=== PATIENT | male | born 1975 ===

== ENCOUNTER 2024-02-17 12:35 | Outpatient (AMB) | payer OTHER, SELFPAY ==
--- NOTE | 2024-02-17 12:51 | A.OFFVIS_ITS ---
Intake Visit Reasons: BPH/ dysuria Intake Note: New Patient presents for initial visit for BPH and Dysuria Urology Medications: Finasteride, Tamsulosin Blood Thinner: none PVR: 31ml's Heavy Truck Mechanic Required: No Accompanied by: Unknown Allergies No Known Allergies Allergy (Verified 02/17/24 13:19) Medication List - Last Reconciled 02/17/24 by DES Stevenson finasteride 5 mg PO DAILY gabapentin mg PO lamotrigine 150 mg PO BID mirtazapine 30 mg PO BEDTIME olanzapine 10 mg PO DAILY polyethylene glycol 3350 grams PO prazosin mg PO sertraline 100 mg PO BID tamsulosin mg PO DAILY HPI Comments Details: Alex is a very pleasant 48-year-old male patient of Dr. Nascimento who was accompanied by his significant other at today's office visit. He has a past medical history of obesity, osteoarthritis of bilateral knees, sleep apnea, chronic constipation, hemorrhoids, and PTSD. He presents to the office today as a new patient for ongoing lower urinary tract symptoms he has been experiencing. In discussion with the patient today he reports since April of last year to the beginning of this year he has been having ongoing issues with dysuria, urinary urgency, urinary frequency, and episodes of urinary incontinence at which time he followed up with his PCP and was started on Flomax and finasteride and recommendation was made for urology referral for further assessment evaluation. He reports noting somewhat improvement in incontinent episodes as w ell as weak urinary stream he had been experiencing. However he does continue with episodes of dysuria and bladder pressure. ADRIÁN performed boggy prostate noted otherwise no nodules or masses palpated. We discussed potential for prostatitis given ADRIÁN and lower urinary tract symptoms. He otherwise denies hematuria, foul smelling urine, flank pain, fever, and or chills. Discussed obtaining retroperitoneal ultrasound for further assessment evaluation and PSA 6-8 weeks status post completion of antibiotic therapy for presumed prostatitis. Unable to obtain urine for urinalysis however PVR 31 mL. He otherwise offers no other issues or concerns at this time. [facility] Medical History Morbidly obese Osteoarthritis of knees, bilateral Sleep apnea Chronic constipation PTSD (post-traumatic stress disorder) Review of Systems Const All systems reviewed & are unremarkable except as noted in HPI and below Physical Exam Const General: cooperative, healthy appearing, comfortable, no acute distress, well developed, alert and awake Nutritional Appearance: overweight Orientation/consciousness: patient oriented x3 Limitations: no limitations HEENT Head: Yes normal to inspection, Yes normocephalic and Yes atraumatic Ears: hearing grossly normal bilaterally Eyes General: appearance normal, both eyes and all related structures Neck Neck: Yes normal visual inspection and Yes trachea midline Chest Chest palpation & inspection: normal inspection of the chest Resp Effort & Inspection: normal respiratory effort and able to speak in complete sentences Cardio Rate: regular rate GI Inspection: Yes normal to inspection General: Yes no CVA tenderness Back/Spine/Pelvis Back: no CVA tenderness Skin General skin exam: no rashes or lesions noted Neuro General: patient oriented x3 Extrem General: Yes normal to inspection Psych Appearance: grossly normal and well kempt Mental Status: mental status grossly normal Speech and movement: Normal speech and movement present and Clear speech present Affect: normal affect Attitude: cooperative Thought process: Normal thought process present Thought content: Normal thought content present Insight: Fair insight present (Psych) Judgement: Fair judgement present (Psych) Office Procedures Post Void Residual Post Residual Void Post Void Residual (PVR): [id number] Void Residual by ultrasound Assessment & Plan Assessment & Plan (1) Lower urinary tract symptoms: Code(s): R39.9 - Unspecified symptoms and signs involving the genitourinary system Category: Medical (2) Prostatitis: Code(s): N41.9 - Inflammatory disease of prostate, unspecified Category: Medical Plan Unable to in urine for urinalysis however PVR 31 mL. ADRIÁN performed boggy prostate noted; we discussed potential prostatitis given lower urinary tract symptoms and ADRIÁN. Start Bactrim as discussed and prescribed. Discussed obtaining PSA 6-8 weeks status post completion of antibiotic therapy. Will obtain retroperitoneal ultrasound for further assessment evaluation. Discussed bladder triggers/irritants. Discussed potential causes for lower urinary tract symptoms patient has been experiencing. Continue Flomax and finasteride Follow-up in 2-3 months with imaging and labs to be completed prior; or sooner with any issues, concerns, and or questions. Orders: Orders AMB Post Void Residual by ultrasound Today Z13.9 - Encounter for screening, unspecified US retroperitoneal comp Today N41.9 - Inflammatory disease of prostate, unspecified, R39.9 - Unspecified symptoms and signs involving the genitourinary system Prostate Specific Antigen 6 Weeks N41.9 - Inflammatory disease of prostate, unspecified, R39.9 - Unspecified symptoms and signs involving the genitourinary system AMB Urinalysis Automated Today Z13.9 - Encounter for screening, unspecified Medications: New sulfamethoxazole-trimethoprim 800-160 mg (Bactrim DS) 1 tab PO BID 28 tabs 0RF 14 days N39.0 - Urinary tract infection, site not specified Patient Instructions: The patient had an opportunity to ask questions regarding the treatment plan. All questions were answered. Physical exam, labs, and imaging were discussed and reviewed in detail. As well as risks, benefits, and discussion of treatment choices. No major barriers to understanding were identified. The patient expressed understanding and agreement with the above treatment plan. The patient was made aware they should contact our office by phone for worsening of their current condition, the appearance of new symptoms, or with any questions or concerns. Compliance is encouraged with any medications and follow up testing that is ordered. It is a privilege to be allowed the opportunity to participate in? your urological care.? Again, if you have any questions or concerns If you have any questions or concerns please do not hesitate to contact me. The office is [phone]. This note is constructed using voice recognition software. While every effort has been made to ensure accuracy payroll tax analyst errors may have been included. Yours sincerely, JOSE ALFREDO Stevenson Coding Level of Care Code New Pt Level 4 (30630) Diagnoses Lower urinary tract symptoms R39.9 Prostatitis N41.9 CPT Codes Post Residual Void - PVR CPT Code: 44467-[id number] Void Residual by ultrasound ([id number])
== END 2024-02-17 13:40 | disposition home or self-care (01) ==
PROVIDERS: PCP Internal Medicine; Visit Provider Nurse Practitioner Family
DX: R39.9 Unspecified symptoms and signs involving the genitourinary system (principal); N41.9 Inflammatory disease of prostate, unspecified
CPT/HCPCS: 99204

== ENCOUNTER → 2024-02-17 12:35 | Outpatient (BNVA) | payer OTHER, SELFPAY | PROVIDERS: PCP Internal Medicine; Visit Provider Nurse Practitioner Family | DX: N41.9 Inflammatory disease of prostate, unspecified (principal); R39.9 Unspecified symptoms and signs involving the genitourinary system | CPT/HCPCS: 51798; 99202 ==

== ENCOUNTER 2024-02-27 09:41 | Outpatient (REF) | payer OTHER, SELFPAY ==
--- NOTE | ~2024-02-27 | US_ITS ---
EXAMINATION: US RETROPERITONEAL COMPLETE (RENAL) CLINICAL INFORMATION: Prostatitis. COMPARISON: None available. TECHNIQUE: Real-time imaging of the kidneys and bladder. FINDINGS: RIGHT KIDNEY: 10.0 x 4.9 x 5.6 cm (SAG x AP x TRV). The kidney is normal in size, contour, and echogenicity. Renal cortical thickness is normal. No renal calculi or hydronephrosis. A benign 1.3 cm Bosniak class II renal cyst with an area of mural calcification is noted which requires no additional imaging or follow up. No solid renal masses are seen. LEFT KIDNEY: 11.9 x 6.4 x 5.4 cm (SAG x AP x TRV). The kidney is normal in size, contour, and echogenicity. Renal cortical thickness is normal. No renal calculi or hydronephrosis. A benign lower pole 4.6 cm Bosniak class I renal cyst is noted which requires no additional imaging or follow up. No solid renal masses are seen. BLADDER: Well distended and normal. Bilateral ureteral jets are demonstrated. Prevoid bladder volume is 380 mL. Postvoid bladder volume is 0 mL. Enlarged prostate, volume 51.9 mL. US/US retroperitoneal comp IMPRESSION: 1. Prostatomegaly. 2. Benign Bosniak class I and Bosniak class II renal cysts which need no further imaging or follow up. Electronically signed by: Jl Dunbar MD 04/28/2024 11:05 PM [facility]
== END 2024-02-27 09:42 | disposition home or self-care (01) ==
LOC: HO.US 09:41
PROVIDERS: PCP Internal Medicine; Visit Provider Nurse Practitioner Family
DX: N41.9 Inflammatory disease of prostate, unspecified (principal); R39.9 Unspecified symptoms and signs involving the genitourinary system
CPT/HCPCS: 76770

== ENCOUNTER 2024-03-29 12:35 | Outpatient (REF) | payer OTHER, SELFPAY ==
[2024-03-29 16:56] LABS: Prostate Specific Antigen 0.91 ng/mL (<0.05-4.0)
== END 2024-03-29 12:36 | disposition home or self-care (01) ==
LOC: HO.LAB 12:35
PROVIDERS: Visit Provider Nurse Practitioner Family
DX: N41.9 Inflammatory disease of prostate, unspecified (principal); R39.9 Unspecified symptoms and signs involving the genitourinary system; Z12.5 Encounter for screening for malignant neoplasm of prostate
CPT/HCPCS: 36415; 84153

== ENCOUNTER 2024-04-20 12:32 | Outpatient (AMB) | payer OTHER, SELFPAY ==
--- NOTE | 2024-04-20 12:59 | A.OFFVIS_ITS ---
Intake Visit Reasons: 2 month follow up/ PSA/ US(set) Intake Note: Patient presents today for follow up on: prostatitis, LUTS, ultrasound and lab results Imaging Completed: 02/27/24 PSA: 0.91 Urology Medications: Finasteride, Tamsulosin Blood Thinner: none PVR:27ml's Lye Treater Required: No Accompanied by: Unknown Allergies No Known Allergies Allergy (Verified 04/20/24 15:55) Medication List - Last Reconciled 04/20/24 by DES Stevenson finasteride 5 mg PO DAILY gabapentin mg PO lamotrigine 150 mg PO BID mirtazapine 30 mg PO BEDTIME olanzapine 10 mg PO DAILY polyethylene glycol 3350 grams PO prazosin mg PO sertraline 100 mg PO BID tamsulosin mg PO DAILY HPI Comments Details: Alex is a very pleasant 48-year-old male patient of Dr. Nascimento who was accompanied by his significant other at today's office visit. He has a past medical history of obesity, osteoarthritis of bilateral knees, sleep apnea, chronic constipation, hemorrhoids, and PTSD. He presents to the office today for follow-up. Of note, patient was seen approximately 2 months ago as a new patient for ongoing lower urinary tract symptoms he has been experiencing at which time a retroperitoneal ultrasound and PSA were ordered for further assessment evaluation. During last office visit ADRIÁN performed and noted boggy prostate at which time patient was given antibiotics for presumed prostatitis given lower urinary tract symptoms and ADRIÁN. In discussion with the patient today he reports feeling symptoms have improved. Recent retroperitoneal ultrasound notes bilateral kidneys with no calculi or hydronephrosis. Bilateral benign Bosniak renal cysts are noted which require no further imaging follow-up per radiology report. The bladder is well distended and normal. Bilateral ureteral jets are demonstrated. Pre void bladder volume is approximately 380 mL. Postvoid b ladder volume is 0 mL. Mildly enlarged prostate with a volume of 52 mL. PSA 04/18 0.9. He continues with Flomax and finasteride as prescribed by his PCP and feels this has also been helpful in episodes of weak urinary stream he had been experiencing. We discussed correlation of PSA with prostate size on recent retroperitoneal ultrasound. Unable to obtain urine for urinalysis however PVR 27 mL. He reports significant improvement in dysuria and bladder pressure he had been experiencing. He reports be happy with current voiding parameters. He otherwise offers no other issues or concerns at this time. [facility] Medical History Morbidly obese Osteoarthritis of knees, bilateral Sleep apnea Chronic constipation PTSD (post-traumatic stress disorder) Review of Systems Const All systems reviewed & are unremarkable except as noted in HPI and below Physical Exam Const General: cooperative, healthy appearing, comfortable, no acute distress, well d eveloped, alert and awake Nutritional Appearance: overweight Orientation/consciousness: patient oriented x3 Limitations: no limitations HEENT Head: Yes normal to inspection, Yes normocephalic and Yes atraumatic Ears: hearing grossly normal bilaterally Eyes General: appearance normal, both eyes and all related structures Neck Neck: Yes normal visual inspection and Yes trachea midline Chest Chest palpation & inspection: normal inspection of the chest Resp Effort & Inspection: normal respiratory effort and able to speak in complete sentences Cardio Rate: regular rate GI Inspection: Yes normal to inspection General: Yes no CVA tenderness Back/Spine/Pelvis Back: no CVA tenderness Skin General skin exam: no rashes or lesions noted Neuro General: patient oriented x3 Extrem General: Yes normal to inspection Psych Appearance: grossly normal and well kempt Mental Status: mental status grossly normal Speech and movement: Normal speech and movement present and Clear speech present Affect: normal affect Attitude: cooperative Thought process: Normal thought process present Thought content: Normal thought content present Insight: Fair insight present (Psych) Judgement: Fair judgement present (Psych) Results Reviewed Results Reviewed: Date of Service: 02/27/24 EXAMINATION: US RETROPERITONEAL COMPLETE (RENAL) FINDINGS: RIGHT KIDNEY: 10.0 x 4.9 x 5.6 cm (SAG x AP x TRV). The kidney is normal in size, contour, and echogenicity. Renal cortical thickness is normal. No renal calculi or hydronephrosis. A benign 1.3 cm Bosniak class II renal cyst with an area of mural calcification is noted which requires no additional imaging or follow up. No solid renal masses are seen. LEFT KIDNEY: 11.9 x 6.4 x 5.4 cm (SAG x AP x TRV). The kidney is normal in size, contour, and echogenicity. Renal cortical thickness is normal. No renal calculi or hydronephrosis. A benign lower pole 4.6 cm Bosniak class I renal cyst is noted which requires no additional imaging or follow up. No solid renal masses are seen. BLADDER: Well distended and normal. Bilateral ureteral jets are demonstrated. Prevoid bladder volume is 380 mL. Postvoid bladder volume is 0 mL. Enlarged prostate, volume 51.9 mL. IMPRESSION: 1. Prostatomegaly. 2. Benign Bosniak class I and Bosniak class II renal cysts which need no further imaging or follow up. Assessment & Plan Assessment & Plan (1) Prostatitis: Code(s): N41.9 - Inflammatory disease of prostate, unspecified Category: Medical (2) Lower urinary tract symptoms: Code(s): R39.9 - Unspecified symptoms and signs involving the genitourinary system Category: Medical (3) Enlarged prostate: Code(s): N40.0 - Benign prostatic hyperplasia without lower urinary tract symptoms Category: Medical (4) Renal cyst: Code(s): N28.1 - Cyst of kidney, acquired Category: Medical Plan Unable to obtain urine for urinalysis however PVR 27 mL. Recent PSA results and retroperitoneal ultrasound results reviewed with the patient today; as noted above. Patient reports significant improvement in lower urinary tract symptoms he had been experiencing. Reports be happy with current voiding parameters on Flomax and finasteride; will continue. Discussed surveillance monitoring of PSA as well as renal cysts. Will obtain PSA in 1 year. Will obtain renal ultrasound in 1 year. Follow-up in 1 year with imaging, PSA, and PVR to be completed prior; or sooner with any issues, concerns, and or questions. Orders: Orders US renal BI 1 Year N28.1 - Cyst of kidney, acquired Prostate Specific Antigen 1 Year N40.0 - Benign prostatic hyperplasia without lower urinary tract symptoms Patient Instructions: The patient had an opportunity to ask questions regarding the treatment plan. All questions were answered. Physical exam, labs, and imaging were discussed and reviewed in detail. As well as risks, benefits, and discussion of treatment choices. No major barriers to understanding were identified. The patient expressed understanding and agreement with the above treatment plan. The patient was made aware they should contact our office by phone for worsening of their current condition, the appearance of new symptoms, or with any question s or concerns. Compliance is encouraged with any medications and follow up testing that is ordered. It is a privilege to be allowed the opportunity to participate in? your urological care.? Again, if you have any questions or concerns If you have any questions or concerns please do not hesitate to contact me. The office is [phone]. This note is constructed using voice recognition software. While every effort has been made to ensure accuracy metal model builder errors may have been included. Yours sincerely, JOSE ALFREDO Stevenson Coding Level of Care Code Est Pt Level 3 (82508) Diagnoses Prostatitis N41.9 Lower urinary tract symptoms R39.9 Enlarged prostate N40.0 Renal cyst N28.1
== END 2024-04-20 13:26 | disposition home or self-care (01) ==
PROVIDERS: PCP Internal Medicine; Visit Provider Nurse Practitioner Family
DX: N41.9 Inflammatory disease of prostate, unspecified (principal); R39.9 Unspecified symptoms and signs involving the genitourinary system; N40.0 Benign prostatic hyperplasia without lower urinary tract symptoms; N28.1 Cyst of kidney, acquired
CPT/HCPCS: 99213

== ENCOUNTER → 2024-04-20 12:32 | Outpatient (BNVA) | payer OTHER, SELFPAY | PROVIDERS: PCP Internal Medicine; Visit Provider Nurse Practitioner Family | DX: N40.0 Benign prostatic hyperplasia without lower urinary tract symptoms (principal); N41.9 Inflammatory disease of prostate, unspecified; N28.1 Cyst of kidney, acquired | CPT/HCPCS: 99212 ==

== ENCOUNTER 2025-04-06 09:47 | Outpatient (REF) | payer OTHER, SELFPAY ==
--- NOTE | ~2025-04-06 | US_ITS ---
CLINICAL HISTORY: N28.1 - Cyst of kidney, acquired US Renal Comparison: None provided Findings: Right kidney normal size and echotexture, 11.5 cm length. Left kidney normal size and echotexture, 12.7 cm length. There is a right renal 0.7 x 0.6 x 0.5 cm cyst. There is a left renal cortical 4.6 x 4.1 x 4.0 cm cyst. There is a 0.7 cm right renal parenchymal calculus. No hydronephrosis of either kidney. Normal color Doppler IMPRESSION: 1. Bosniak 1 renal cysts. No acute findings. This document has been electronically signed by: Ion Wilkes MD on 04/07/2025 09:28:09
--- OUTSIDE RECORDS SUMMARY | 2025-04-06 11:09 | XMS_ITS | Clinical Summary ---
Author Organization [facility] Address [address] [place] [address] Care Team Providers Care Blasting Cap Assembler Name Role Phone Cindy Ingram [facility] Primary Care Provider [phone] Source Comments PLEASE NOTE, if this patient is a minor, it may be UNLAWFUL to discuss sensitive information that is contained in these records (such as FAMILY PLANNING, MENTAL HEALTH or SUBSTANCE ABUSE) with the minor patient's parent or other person without the patient's specific authorization.[facility] Allergies No known active allergies Medications tamsulosin (FLOMAX) 0.4 mg 24 hr capsuleIndicatio ns:BPH associated with nocturia Take 1 Cap by mouth once daily Take 30 minutes following the same meal each day. Swallow whole. Do not open, crush, or chew. 30 Cap 3 7 Active FLUoxetine (PROZAC) 20 mg capsule PER PSYCH 8 Active prazosin (MINIPRESS) 5 mg capsule PER PSYCH 8 Active naproxen (NAPROSYN) 500 mg tabletIndication s:Nonintractable headache, unspecified chronicity pattern, unspecified headache type Take 1 Tab by mouth 2 (two) times daily with a meal 60 Tab 3 8 Active Active Problems Problem Noted Date Diagnosed Date Prediabetes 03/26/2017 BPH associated with nocturia 03/25/2017 Overactive bladder 11/23/2016 Overview (11/23/2016): F/u urology - start oxybutynin ER 5 mg 11/14/16 Erectile dysfunction 11/23/2016 Overview (11/23/2016): Seen urology 11/14/16- ordered vacuum erection device consult VIANNEY (obstructive sleep apnea) 11/17/2016 Overview (11/17/2016): -sleep study done 11/03/16 at [place]- they will arrange f/u tx with CPAP Insomnia due to anxiety and fear 12/25/2015 Vitamin D deficiency 10/26/2015 Morbid obesity with BMI of 45.0-49.9, adult 05/2015 Restless leg syndrome 10/25/2015 Degenerative arthritis of knee, bilateral 2015 Overview (10/25/2015): F/u [facility] Anxiety and depression 10/25/2015 Overview (10/25/2015): F/u [facility]. Constipation 10/25/2015 Immunizations Immunization Administration Dates Next Due INFLUENZA, SEASONAL, INJECTABLE 02/24/2016 TDAP 09/09/2017 Family History Relation Name Status Comments Father (Age 91) Mother (Age 24) seizure Social History Tobacco Use Types Packs/Day Years Used Date Smoking Tobacco: Never Smokeless Tobacco: Never Alcohol Use Standard Drinks/Week Comments No 0 (1 standard drink = 0.6 oz pur e alcohol) Social Connections Answer Date Recorded Social Connections and Isolation 0 01/17/2019 Financial Resource Strain Answer Date R ecorded Financial Resource Strain 0 2018 Stress Answer Date Recorded Stress 0 01/17/2019 Physical Activity Answer Date Recorded Physical Activity 0 01/17/2019 Food Insecurity Answer Date Recorded Food 0 01/17/2019 Transportation Needs Answer Date Record ed Transportation 0 01/17/2019 Housing Stability Answer Date Recorded Housing 0 01/17/2019 Safety and Environment Answer Date Yordan rded Safety 0 01/17/2019 Utilities Answer Date Recorded Utilities 0 01/17/2019 Employment Answer Date Recorded Employment 0 01/17/2019 Sex and Gender Information Value Date Recorded Sex Assigned at Male 03/25/2017 12:56 PM PDT Legal Sex Male 8:54 AM PDT Gender Identity Male 03/25/2017 12:56 PM PDT Sexual Orientation Straight 03/25/2017 12 :56 PM PDT Last Filed Vital Signs Vital Sign Reading Time Taken Comments Blood Pressure 120/70 09/09/2017 9:30 AM EDT Pulse 74 09/09/2017 9:30 AM EDT Temperature 36.4 C (97.6 F) 09/09/2017 9:30 AM EDT Respiratory Rate 20 09/09/2017 9:30 AM EDT Oxygen Saturation 97% 08/19/2016 9:15 AM EDT Inhaled Oxygen Concentration - - Weight 137.9 kg (304 lb) 09/19/2017 1:33 PM EDT Height 172.7 cm (5' 8 ) 09/19/2017 1:33 PM EDT Body Mass Index 46.22 09/19/2017 1:33 PM EDT Plan of Treatment Not on file Insurance [place] - [place] Care Teams Blasting Cap Assembler Relationship Specialty Start Date End Date Cindy Ingram FNP [address] [place] [id number] PCP - General 12/07/18
--- OUTSIDE RECORDS SUMMARY | 2025-04-06 11:09 | XMS_ITS | Clinical Summary ---
Author Organization [address] [facility] Address [address] [place] [id number] Phone Care Team Providers Care [employer] Name Role Phone MarcusCarlos Manuel thomas Primary Care Provider [phone] Social History Tobacco Use Types Packs/Day Years Used Date Smoking Tobacco: Never Assessed Sex and Gender Information Value Date Recorded Sex Assigned at Not on file Legal Sex Male 3:30 PM EST Gender Identity Not on file Sexual Orientation Not on file Last Filed Vital Signs Vital Sign Reading Time Taken Comments Blood Pressure 118/70 02/25/2024 10:01 AM EDT Sitting R Arm Pulse 72 02/25/2024 10:01 AM EDT Temperature - - Respiratory Rate - - Oxygen Saturation - - Inhaled Oxygen Concentration - - Weight 103 kg (227 lb 12.8 oz) 02/25/2024 10:01 AM EDT Height 180.3 cm (5' 11 ) 02/25/2024 10: 01 AM EDT Body Mass Index 31.77 02/25/2024 10:01 AM EDT Plan of Treatment Health Maintenance Due Date Last Done Comments Colorectal Cancer Screening: Colonoscopy 1975 Hepatitis B Vaccines (1 of 3 - 19+ 3-dose series) 1992 HIV Screening 04/24/2022 Hepatitis C Screening 04/24/2022 Medicare Annual Wellness Visit 04/24/2022 Social Influencers of Health Screening 04/24/2022 Pneumococcal Vaccine: 50+ Years (1 of 1 - PCV) 11/07/2023 Zoster Vaccines (1 of 2) 11/07/2023 Depression Screening 05/26/2024 COVID-19 Vaccine (3 - 2024-2 6 season) 2025 06/02/2021, 10/03/2020 Influenza Vaccine (#1) 2025 02/24/2016 DTaP,Tdap,and Td Vaccines (2 - Td or Tdap) 09/10/2027 09/09/2017 Cholesterol Screening (Lipid Panel) 10/11/2029 10/11/2024 RSV Immunization Adult Patients (1 - 1-dose 75+ series) 2048 HIB Vaccines Aged Out No longer eligi ble based on patient's age to complete this topic HPV Vaccines Aged Out No longer eligi ble based on patient's age to complete this topic Hepatitis A Vaccines Aged Out No long er eligible based on patient's age to complete this topic IPV Vaccines Aged Out No longer eligi ble based on patient's age to complete this topic MMR Vaccines Aged Out No longer eligi ble based on patient's age to complete this topic Meningococcal ACWY Vaccine Aged Out N o longer eligible based on patient's age to complete this topic Meningococcal B Vaccine Aged Out No l onger eligible based on patient's age to complete this topic RSV Immunization Patients Under 20 months Aged Out No longer eligible b ased on patient's age to complete this topic Varicella Vaccines Aged Out No longer eligible based on patient's age to complete this topic Procedures Procedure Name Priority Date/Time Associated Diagnosis Comments LIPID PANEL WITH REFLEX TO DIRECT LDL Routine 10/11/2024 11:15 AM EDT Posttraumatic stress disorder Erectile dysfunction due to arterial insufficiency Chronic kidney disease (CKD) stage G3a/A1, moderately decreased glomerular filtration rate (GFR) between 45-59 mL/min/1.73 square meter and albuminuria creatinine ratio les* (CMS/HCC V24, [facility] V28) Benign enlargement of prostate from Last 3 Months or Most Recently Relevant to Health Maintenance Results * Lipid panel with reflex to direct LDL (10/11/2024 11:15 AM EDT) Cholesterol 126 0 - 200 mg/dL LAB CHEMISTRY METHOD 10/11/2024 5:05 PM EDT [facility] Triglycerides 66 0 - 150 mg/dL LAB CHEMISTRY METHOD 10/11/2024 5:05 PM EDT [facility] HDL 48 >=40 mg/dL LAB CHEMISTRY METHOD 10/11/2024 5:05 PM EDT [facility] LDL Calculated 65 0 - 100 mg/dL LAB CHEMISTRY METHOD 10/11/2024 5:05 PM EDT [facility] VLDL Cholesterol Thiago 13.2 mg/dL LAB CHEMISTRY METHOD 10/11/2024 5:05 PM EDT [facility] Non HDL Chol. (LDL+VLDL) 78 <145 mg/dL LAB CHEMISTRY METHOD 10/11/2024 5:05 PM EDT [facility] Chol/HDL Ratio 2.6 0.0 - 4.4 LAB CHEMISTRY METHOD 10/11/2024 5:05 PM EDT [facility] Blood Venous blood specimen / Unknown Venipuncture / Unknown 10/11/2024 11:15 AM EDT 10/11/2024 11:15 AM EDT us Danisha Orta [employer] COORDINATOR LAB BLOOD ORDERABLES nal Result [facility] [address] [place] [address], from Last 3 Months or Most Recently Relevant to Health Maintenance Insurance [facility] Member Subscriber Plan / Payer (Ef fective 2020-Present) Name:HIGINIO RUFFIN Relation to Subscriber:Spouse Name:HIGINIO BAIRD Date of :1973 Address: [address] [place] [id number] Payer ID:[id number] Group ID:[id number] Type:Not on file Address: [address] [phone] [facility] [employer] Member Subscriber Plan / Payer (Ef fective for All Dates) Name:Higinio Ruffin Member ID:Not on file Relation to Subscriber:Self Name:Higinio Ruffin Subscriber ID:Not on file Payer ID:[id number] Group ID:Not on file Type:Not on file Address: [address] [facility] [address] [phone] Care Teams [employer] Relationship Specialty Start Date End Date Carlos Manuel Nascimento DO [address] [place] [phone] PCP - General 01/23/24
== END 2025-04-06 09:48 | disposition home or self-care (01) ==
LOC: HO.US 09:47
PROVIDERS: PCP Internal Medicine; Visit Provider Nurse Practitioner Family
DX: N28.1 Cyst of kidney, acquired (principal)
CPT/HCPCS: 76775

== ENCOUNTER → 2025-04-06 09:49 | Outpatient (BNV) | payer OTHER, SELFPAY | PROVIDERS: PCP Internal Medicine; Visit Provider Specialist | DX: N28.1 Cyst of kidney, acquired (principal) | CPT/HCPCS: 76775 ==